=== PATIENT | male | born 1980 | race Caucasian/White ===

== ENCOUNTER 2018-01-08 12:36 | Emergency (ER) | payer MEDICAID, OTHER ==
[~2018-01-08] VITALS: Ht 170.2 cm; Wt 54.0 kg
[2018-01-08 13:20] VITALS: BP 119/83
[2018-01-08] MEDS ORDERED: DOXY100C43 PO (14:46)
== END 2018-01-08 15:00 | disposition home or self-care (01) ==
LOC: ER 12:37
DX: N50.89 Other specified disorders of the male genital organs (principal); N50.812 Left testicular pain; Z79.899 Other long term (current) drug therapy
CPT/HCPCS: 76870; 99284